=== PATIENT | male | born 1990 | race Caucasian/White ===

== ENCOUNTER 2016-09-14 12:52 | Inpatient (IN) | payer BC ==
[~2016-09-14] VITALS: Ht 165.1 cm; Wt 80.0 kg
[2016-09-14] MEDS ORDERED: KETOROLAC 30 MG INJ IM STA (13:28)
[2016-09-14] MEDS ORDERED: HYDROCODONE/APAP (10/325) TAB PO ONE (13:30)
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
--- NOTE | 2016-09-14 15:00 | RADRPT ---
PROCEDURE: XR Right Ankle CLINICAL INDICATION: Injury TECHNIQUE: Standard 3 view radiographs were submitted. COMPARISON: None FINDINGS: Osseous structures: There is a comminuted intra-articular fracture involving the distal right tibia extending into both the medial and lateral plafond. There is no significant displacement of the fra cture fragments. There is a cortical avulsion off the medial aspect of the lateral malleolus. Joint spaces: No dislocation is evident but there is loss of height at the medial plafond. Soft tissues: There is extensive lateral soft tissue swelling. IMPRESSION: 1. Comminuted intra-articular fracture involving distal right tibia extending into the medial and l ateral plafond. 2. Linear avulsion fragments project through the lateral ankle mortise and presumably are off the m edial aspect of the lateral malleolus. 3. Extensive soft tissue swelling seen about the lateral malleolus. Physician Claudia Date Time Electronically viewed and signed by Physician Claudia on 09/14/2016 15:00 RH/
--- NOTE | 2016-09-14 15:01 | RADRPT ---
PROCEDURE: XR Right Foot CLINICAL INDICATION: Injury TECHNIQUE: An PA and a lateral view were obtained. COMPARISON: None FINDINGS: Osseous structures: There is a comminuted intra-articular fracture involving the distal right tibia. The visualized osseous elements otherwise appear intact. Joint spaces: are well maintained, with no significant spurring, erosion or joint effusion evident. Soft tissues: There is considerable soft tissue swelling seen about the lateral malleolus. IMPRESSION: 1. Comminuted intra-articular fracture involving distal right tibia. 2. Soft tissue swelling seen about the lateral malleolus. Physician Claudia Date Time Electronically viewed and signed by Physician Claudia on 09/14/2016 15:01 /
--- NOTE | 2016-09-14 15:04 | RADRPT ---
PROCEDURE: XR Right Tibia-Fibula CLINICAL INDICATION: Injury TECHNIQUE: AP and lateral radiographs were submitted COMPARISON: None FINDINGS: Osseous structures: There is a comminuted intra-articular fracture involving the distal right tibia with the main distal fragment displaced medially by a cortical width. Fracture lines extend into th e medial and lateral plafond. Of the lateral malleolus as partially obscured by overlap of the talu s. No other fracture is identified. Joint spaces: There is narrowing of the superior ankle joint medially. Soft tissues: Soft tissue swelling is seen about the lateral ankle. IMPRESSION: 1. Comminuted intra-articular fracture involving the distal right tibia with the main distal fragme nt displaced medially by a cortical width. 2. Narrowing of the superior ankle mortise medially. 3. Considerable soft tissue swelling is seen about the lateral malleolus. Physician Claudia Date Time Electronically viewed and signed by Physician Claudia on 09/14/2016 15:03 /
--- NOTE | 2016-09-14 15:05 | RADRPT ---
PROCEDURE: CR Right Knee CLINICAL INDICATION: Injury TECHNIQUE: A PA and lateral view were submitted. COMPARISON: None FINDINGS: Osseous Structures: The osseous elements appear well mineralized and intact. Join Spaces: The joint spaces are well maintained. No joint effusion is identified. Soft Tissues: The soft tissues appear unremarkable. IMPRESSION: Unremarkable two-view right knee series. Physician Claudia Date Time Electronically viewed and signed by Remy Jarrett Physician on 09/14/2016 15:04 /
--- NOTE | 2016-09-14 15:11 | RADRPT ---
PROCEDURE: US right lower extremity veins. CLINICAL INDICATION: Right leg pain and swelling. TECHNIQUE: Multiple longitudinal and transverse images of the right lower extremity veins were obt ained with bazan scale and color Doppler imaging. The common femoral vein, femoral vein, and poplitea l vein were evaluated. 2D grayscale measurements with compression sonography, pulsed Doppler, color Doppler, and pulsed Doppler with augmentation. COMPARISON: No prior studies are available for comparison. FINDINGS: The right common femoral, femoral and popliteal veins are normally compressible throughout. Color f low demonstrates normal filling of the vessels. Normal waveforms are visualized and there is normal response to augmentation. IMPRESSION: 1. No evidence of deep vein thrombosis involving the right lower extremity. RPTAT: QQ .Junaid Koo MD, MD Date Time Electronically viewed and signed by .Junaid Koo MD, MD on 09/14/2016 15:10 .R/
[2016-09-14] MEDS ORDERED: ONDANSETRON 4 MG INJ IV STA ×2 (15:30→16:40)
[2016-09-14] MEDS ORDERED: morphine 4 MG/ML VIAL IV STA (15:30)
[2016-09-14] MEDS ORDERED: HYDROmorphONE 1 MG/ML SYG IV STA ×4 (15:50→17:08)
[2016-09-14] MEDS ORDERED: SOD CHLORIDE 0.9% 500 ML IV STA (16:40)
[2016-09-14 17:09] LABS: ADD SCAN DIFF NO
[2016-09-14 17:11] LABS: BASOPHILS % 0.3 % (0.0-2.0); HEMATOCRIT 39.1 % (42.0-52.0); HEMOGLOBIN 13.5 g/dl (14.0-18.0); LYMPHOCYTES # 0.8 10^3/ul (0.8-2.9); LYMPHOCYTES % 7.1 % (15.0-51.0); MEAN CORPUSCULAR HEMOGLOBIN 31.3 pg (29.0-33.0); MEAN CORPUSCULAR HGB CONC 34.5 g/dl (32.0-37.0); MEAN CORPUSCULAR VOLUME 90.5 fl (82.0-101.0); MEAN PLATELET VOLUME 9.9 fl (7.4-10.4); MONOCYTE # 0.8 10^3/ul (0.3-0.9); MONOCYTES % 6.7 % (0.0-11.0); NEUTROPHIL # 9.6 10^3/ul (1.6-7.5); NEUTROPHILS % 85.5 % (39.0-77.0); PLATELET COUNT 195 10^3/UL (140-415); RED BLOOD COUNT 4.32 10^6/ul (4.70-6.10); RED CELL DISTRIBUTION WIDTH 11.9 % (11.5-14.5); WHITE BLOOD COUNT 11.2 10^3/ul (4.8-10.8)
[2016-09-14 17:31] LABS: INR 0.98; PARTIAL THROMBOPLASTIN TIME 24.7 Sec (25.0-35.0)
[2016-09-14 17:33] LABS: CALCIUM 9.4 mg/dl (8.4-10.2); CREATININE 0.93 mg/dl (0.61-1.24); POTASSIUM 4.3 mmol/L (3.5-5.1)
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
[2016-09-14] MEDS ORDERED: ACETAMINOPHEN 325 MG TAB PO PRN ×2 (18:00→21:30)
[2016-09-14] MEDS ORDERED: ONDANSETRON 4 MG INJ IV PRN ×2 (18:00→21:30)
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
[2016-09-14 20:00] VITALS: BP 118/65; PULSE 66; RESP 18
[2016-09-14] MEDS ORDERED: HYDROmorphONE 1 MG/ML SYG IV PRN ×2 (20:00→21:30)
[2016-09-14] MEDS: HYDROmorphONE 1 MG/ML SYG IV PRN (20:06)
[2016-09-14] MEDS ORDERED: NACL 0.9% 3 ML SYG IV SCH (21:30)
[2016-09-14] MEDS ORDERED: HYDROmorphONE 2 MG/ML SYG IV PRN (21:30)
[2016-09-14] MEDS: SOD CHLORIDE 0.9% 1,000 ML IV SCH (23:27)
[2016-09-15] VITALS (21 sets, daily range): BP systolic 116–132; BP diastolic 52–65; PULSE 56–90; RESP 12–30
[2016-09-15] MEDS: ONDANSETRON 4 MG INJ IV PRN ×2 (01:25→08:38)
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
[2016-09-15 06:22] LABS: ADD SCAN DIFF NO
[2016-09-15 06:25] LABS: BASOPHILS % 0.2 % (0.0-2.0); HEMATOCRIT 36.7 % (42.0-52.0); HEMOGLOBIN 12.5 g/dl (14.0-18.0); LYMPHOCYTES # 1.7 10^3/ul (0.8-2.9); MEAN CORPUSCULAR HEMOGLOBIN 30.9 pg (29.0-33.0); MEAN CORPUSCULAR HGB CONC 34.1 g/dl (32.0-37.0); MEAN CORPUSCULAR VOLUME 90.8 fl (82.0-101.0); MEAN PLATELET VOLUME 10.4 fl (7.4-10.4); MONOCYTES % 11.7 % (0.0-11.0); NEUTROPHIL # 5.8 10^3/ul (1.6-7.5); NEUTROPHILS % 67.8 % (39.0-77.0); PLATELET COUNT 180 10^3/UL (140-415); RED BLOOD COUNT 4.04 10^6/ul (4.70-6.10); WHITE BLOOD COUNT 8.6 10^3/ul (4.8-10.8)
[2016-09-15] MEDS: PANTOPRAZOLE 40 MG INJ IV SCH (06:26)
[2016-09-15 06:48] LABS: POTASSIUM 4.2 mmol/L (3.5-5.1)
[2016-09-15 06:51] LABS: ALBUMIN/GLOBULIN RATIO 1.37; BILIRUBIN,INDIRECT 0.8 mg/dl (0-1.1); BILIRUBIN,TOTAL 0.8 mg/dl (0.2-1.3); CALCIUM 8.9 mg/dl (8.4-10.2); CREATININE 0.98 mg/dl (0.61-1.24); TOTAL PROTEIN 6.9 g/dl (6.1-8.1)
[2016-09-15 06:52] LABS: MAGNESIUM 1.9 mg/dl (1.7-2.5)
[2016-09-15] MEDS ORDERED: EPHEDrine SULFATE 50 MG/5 ML SYG ONE (07:00)
[2016-09-15] MEDS ORDERED: CEFAZOLIN 1 GM INJ ONE (07:00)
[2016-09-15] MEDS ORDERED: DESFLURANE 15 MIN ONE (07:00)
[2016-09-15] MEDS ORDERED: morphine 4 MG/ML VIAL IV STA (08:24)
[2016-09-15] MEDS ORDERED: LORAZEPAM 2 MG INJ IV PRN (08:30)
[2016-09-15] MEDS ORDERED: ONDANSETRON 4 MG INJ IV PRN ×3 (08:30→15:00)
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
[2016-09-15] MEDS ORDERED: FENTAnyl 50 MCG/ML VIAL ONE (12:57)
[2016-09-15] MEDS ORDERED: morphine SULFATE/PF (10 MG/10 ML) INJ ONE ×2 (13:02)
[2016-09-15] MEDS: SOD CHLORIDE 0.9% 1,000 ML IV SCH ×2 (13:18→18:26)
[2016-09-15] MEDS ORDERED: PHENYLephrine (100 MCG/ML) 5ML SYG ONE (13:32)
[2016-09-15] MEDS ORDERED: SUCCINYLCHOLINE CHLORIDE 100 MG/5 ML SYG IV ONE (13:42)
[2016-09-15] MEDS ORDERED: GLYCOPYRROLATE 0.4 MG INJ ONE (13:42)
[2016-09-15] MEDS ORDERED: ROCURONIUM 50 MG INJ ONE (13:42)
[2016-09-15] MEDS ORDERED: NEOSTIGMINE 3 MG/3 ML SYRINGE ONE (13:42)
[2016-09-15] MEDS ORDERED: LIDOCAINE 2% (SDV) 5 ML INJ ONE (13:42)
[2016-09-15] MEDS ORDERED: PROPOFOL 20 ML ONE (13:42)
[2016-09-15] MEDS ORDERED: HYDROmorphONE 1 MG/ML SYG IV PRN (15:00)
[2016-09-15] MEDS ORDERED: NALOXONE (0.4 MG/ML) INJ IV PRN (15:00)
[2016-09-15] MEDS ORDERED: HYDROmorphONE (0.2 MG/ML) 10ML SYG IV PRN ×3 (15:00)
[2016-09-15] MEDS ORDERED: DIPHENHYDRAMINE 50 MG INJ IV PRN ×2 (15:00)
[2016-09-15] MEDS ORDERED: MEPERIDINE 25 MG INJ IV PRN (15:00)
[2016-09-15] MEDS ORDERED: FENTAnyl 50 MCG/ML VIAL IV PRN (15:00)
[2016-09-15] MEDS ORDERED: HYDROCODONE/APAP (5/325) TAB PO PRN (17:00)
[2016-09-15] MEDS: CEFAZOLIN 1 GM/50 ML (PMX) 50 ML IVPB SCH ×2 (17:00→22:19)
[2016-09-15] MEDS ORDERED: NACL 0.9% 3 ML SYG IV SCH (17:00)
--- NOTE | 2016-09-15 17:32 | RADRPT ---
PROCEDURE: Intraoperative imaging of the right ankle with fluoroscopy. CLINICAL INDICATION: Right ankle pain. Intraoperative. TECHNIQUE: 6 images of the right ankle were obtained in the operating room with an image intensifi er. No radiologist was in attendance. Fluoroscopy time was unobtainable. COMPARISON: 09/14/2016. FINDINGS: As seen previously, there is a comminuted fracture of the distal tibia. Alignment is satisfactory. There is a cast which obscures the bone detail. An external fixation devices traversing the calcan eus. IMPRESSION: 1. Intraoperative imaging of the right ankle. RPTAT: QQ .Junaid Koo MD, MD Date Time Electronically viewed and signed by .Junaid Koo MD, on 09/15/2016 17:32 .R/
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
--- NOTE | 2016-09-15 18:08 | RADRPT ---
PROCEDURE: XR Right Ankle. CLINICAL INDICATION: Right ankle pain. Postop. TECHNIQUE: 3 views. Frontal, lateral, and oblique. COMPARISON: 09/14/2016. FINDINGS: Bone detail is obscured by the cast. There is a comminuted fracture of the distal tibia extending to the distal articular surface of the tibia with satisfactory alignment. A single pin is noted in the calcaneus. The articular surfaces are otherwise intact. There is no lytic or blastic lesion. There is diffuse soft tissue swelling. IMPRESSION: 1. Satisfactory postoperative appearance of the right ankle. RPTAT: QQ .Junaid Koo MD, Date Time Electronically viewed and signed by .Junaid Koo MD, on 09/15/2016 18:08 .R/
[2016-09-15] MEDS: HYDROmorphONE 1 MG/ML SYG IV PRN ×3 (18:27→23:59)
[2016-09-15] MEDS: HYDROCODONE/APAP (5/325) TAB PO PRN ×2 (20:05→23:03)
[2016-09-16 00:36] VITALS: BP 130/76; PULSE 68; RESP 16
--- NOTE | 2016-09-16 01:55 | OPR ---
DATE OF OPERATION: 09/15/2016 PREOPERATIVE DIAGNOSIS: Tibial plafond fracture of the right ankle. POSTOPERATIVE DIAGNOSIS: Tibial plafond fracture of the right ankle. PROCEDURES PERFORMED: Manipulative reduction of the tibial plafond fracture of the right ankle unde r anesthesia followed by immobilization, utilizing pins and plaster technique. ANESTHESIA: Spinal anesthesia combined with general anesthesia. SURGEON: Johnie Beatty MD. PROCEDURES AND FINDINGS: Under anesthesia, the patient was placed in supine position upon the fract ure table. Utilizing fracture table under fluoroscopic monitoring, the preliminary manipulative red uction was carried out and the overall alignment was observed. It was noted that with manipulative reduction, the fractures are lining up fairly good and the fracture line involving the articular moshe face was getting better aligned. Because of this initial observation and initial outcome following the manipulative reduction, it was decided to carry out the pins and plaster fixation and immobiliza tion. Following initial manipulation a Steinmann pin was placed in through the calcaneus and proxim al shaft of the tibia and then the traction was established through the Steinmann pins. After confi rming acceptable overall alignment of the fracture along with the acceptable alignment at the articu lar surface, the entire right leg was immobilized in a fiberglass cast, incorporating the Steinmann pins proximally and distally. At the end of the testing overall alignment of the fracture was satis factory. The patient tolerated the entire procedure very well and was sent to the recovery room in good condi tion. Dictated By: JOHNIE BEATTY MD IK/NTS Conf#: [id number] DID#: [id number]
[2016-09-16] MEDS: SOD CHLORIDE 0.9% 1,000 ML IV SCH ×6 (03:29→22:35)
[2016-09-16] MEDS: HYDROmorphONE 1 MG/ML SYG IV PRN ×6 (03:37→22:53)
[2016-09-16 04:56] LABS: ADD SCAN DIFF NO
[2016-09-16 05:12] LABS: BASOPHILS % 0.3 % (0.0-2.0); HEMATOCRIT 34.4 % (42.0-52.0); HEMOGLOBIN 11.5 g/dl (14.0-18.0); LYMPHOCYTES % 27.1 % (15.0-51.0); MEAN CORPUSCULAR HEMOGLOBIN 30.9 pg (29.0-33.0); MEAN CORPUSCULAR HGB CONC 33.4 g/dl (32.0-37.0); MEAN CORPUSCULAR VOLUME 92.5 fl (82.0-101.0); MEAN PLATELET VOLUME 10.5 fl (7.4-10.4); MONOCYTE # 0.8 10^3/ul (0.3-0.9); MONOCYTES % 10.6 % (0.0-11.0); NEUTROPHIL # 4.5 10^3/ul (1.6-7.5); NEUTROPHILS % 61.9 % (39.0-77.0); PLATELET COUNT 142 10^3/UL (140-415); RED BLOOD COUNT 3.72 10^6/ul (4.70-6.10); WHITE BLOOD COUNT 7.3 10^3/ul (4.8-10.8)
[2016-09-16 05:30] LABS: POTASSIUM 4.2 mmol/L (3.5-5.1)
[2016-09-16 05:32] LABS: CREATININE 0.87 mg/dl (0.61-1.24)
[2016-09-16 05:33] LABS: CALCIUM 8.3 mg/dl (8.4-10.2)
[2016-09-16] MEDS: PANTOPRAZOLE 40 MG INJ IV SCH (05:48)
[2016-09-16] MEDS: CEFAZOLIN 1 GM/50 ML (PMX) 50 ML IVPB SCH ×2 (05:48→15:17)
[2016-09-16 07:43] VITALS: BP 126/71; RESP 19
--- NOTE | 2016-09-16 09:27 | CONS ---
Date/Time of Note Date/Time of Note DATE: 09/16/16 TIME: 09:24 Consultation Date/Type/Reason Admit Date/Time September 14, 2016 at 17:37 Initial Consult Date 09/16/16 Type of Consultation: Anesthesiology Reason for Consultation Follow up 24 HR Interval Summary Free Text/Dictation Pt seen and examined at bedside is POD#1 s/p Tibial fracture repair. Pt received GETA and duramorph spinal for post op pain control. He states he started having pain last night for which he recieved IV narcotis which helped him. No N/V/D/C/numbess/[place]. Will continue to follow. Constitutional: improved Exam/Review of Systems Vital Signs Vitals Vital Signs Date Time Temp Pulse Resp B/P Pulse Ox O2 Delivery O2 Flow Rate FiO2 09/16/16 07:43 98.0 87 19 126/71 98 09/16/16 00:36 Nasal Cannula 1.0 Intake and Output 09/15/16 09/15/16 09/16/16 15:00 23:00 07:00 Intake Total 420 ml 1550 ml 1500 ml Output Total 255 ml 1800 ml Balance 420 ml 1295 ml -300 ml Results Result Diagram: 09/16/16 0434 09/16/16 0434 Results 24 hrs Laboratory Tests Test 09/16/16 04:34 White Blood Count 7.3 Red Blood Count 3.72 L Hemoglobin 11.5 L Hematocrit 34.4 L Mean Corpuscular Volume 92.5 Mean Corpuscular Hemoglobin 30.9 Mean Corpuscular Hemoglobin Concent 33.4 Red Cell Distribution Width 12.0 Platelet Count 142 # Mean Platelet Volume 10.5 H Neutrophils % 61.9 Lymphocytes % 27.1 Monocytes % 10.6 Eosinophils % 0.0 Basophils % 0.3 Nucleated Red Blood Cells % 0.0 Neutrophils # 4.5 Lymphocytes # 2.0 Monocytes # 0.8 Eosinophils # 0.0 Basophils # 0.0 Nucleated Red Blood Cells # 0.0 Sodium Level 138 Potassium Level 4.2 Chloride Level 102 Carbon Dioxide Level 27 Anion Gap 13 Blood Urea Nitrogen 6 L Creatinine 0.87 Glucose Level 99 Calcium Level 8.3 L Medications Medications Current Medications Hydromorphone HCl (Dilaudid) 1 mg Q4H PRN IV PAIN Last administered on t 23:59; Admin Dose 1 MG; Start 09/14/16 at 20:00 Ondansetron HCl 4 mg 4 mg Q4H PRN IV NAUSEA AND/OR VOMITING Last administered on 09/15/16 08:38; Admin Dose 4 MG; Start 09/14/16 at 23:00 Sodium Chloride (NS) 1,000 ml @ 70 mls/hr [id number] IV Last administered on 09/14 23:27; Admin Dose 70 MLS/HR; Start 09/14/16 at 23:00 Acetaminophen (Tylenol Tab) 650 mg Q6H PRN PO PAIN LEVEL 1-3 OR FEVER Last administered on 09/15/16 22:19; Admin Dose 650 MG; Start 09/14/16 at 21:30 Hydromorphone HCl (Dilaudid) 2 mg Q4H PRN IV SEVERE PAIN LEVEL 7-10; Start at 21:30 Pantoprazole (Protonix Iv) 40 mg DAILY@06 IV Last administered on 09/16/16 05: 48; Admin Dose 40 MG; Start 09/15/16 at 06:00 Naloxone HCl (Narcan) 0.1 mg Q2M PRN IV FOR RESP RATE 8 OR LESS; Start at 15:00; Stop 09/16/16 at 14:59 Hydromorphone HCl (Dilaudid) 0.2 mg Q3H PRN IV PAIN LEVEL 1-5; Start 09/15/16 at 15:00; Stop 09/16/16 at 14:59 Hydromorphone HCl (Dilaudid) 0.4 mg Q3H PRN IV PAIN LEVEL 6-10 Last administered on 09/16/16 06:42; Admin Dose 0.4 MG; Start 09/15/16 at 15:00; Stop 09/16/16 at 14:59 Diphenhydramine HCl (Benadryl) 25 mg Q6H PRN IV ITCHING Last administered on 00:30; Admin Dose 25 MG; Start 09/15/16 at 15:00; Stop 09/16/16 at 14:59 Ondansetron HCl 4 mg 4 mg Q6H PRN IV NAUSEA AND/OR VOMITING; Start 09/15/16 at 15:00; Stop 09/16/16 at 14:59 Sodium Chloride (NS) 1,000 ml @ 100 mls/hr Q10H IV Last administered on 03:29; Admin Dose 100 MLS/HR; Start 09/15/16 at 16:35 Enoxaparin Sodium (Lovenox) 40 mg DAILY SC ; Start 09/16/16 at 09:00 Hydromorphone HCl (Dilaudid) 1 mg Q3 PRN IV PAIN; Start 09/15/16 at 17:00 Acetaminophen/ Hydrocodone Bitart ([employer] (5/325)) 1 tab Q3H PRN PO PAIN Last administered on 09/15/16 23:03; Admin Dose 1 TAB; Start 09/15/16 at 17:00 Acetaminophen/ Hydrocodone Bitart 1 tab 1 tab Q3H PRN PO PAIN; Start 09/15/16 at 17:00 Cefazolin Sodium (Ancef 1 Gm/50 ml (Pmx)) 50 ml @ 100 mls/hr Q8 IVPB Last administered on 09/16/16 05:48; Admin Dose 100 MLS/HR; Start 09/16/16 at 06:00 ; Stop 09/16/16 at 14:29 TRACIE ANGUIANO September 16, 2016 09:27
[2016-09-16] MEDS: ENOXAPARIN 40 MG/0.4 ML SYG SC SCH (10:07)
[2016-09-16] MEDS ORDERED: OXYC-279 PO (13:42)
[2016-09-16] MEDS ORDERED: SENN-53 PO (13:42)
--- NOTE | 2016-09-16 13:51 | PDOCDIS ---
Discharge Instructions DIAGNOSIS Discharge Diagnosis: 1. Tibial plafond fracture of the right ankle CONDITION Patient Condition: Stable FOLLOW UP/APPOINTMENTS Appointments 1. Follow up with [facility] in one week JEFF PRUITT September 16, 2016 13:51
[2016-09-16] MEDS ORDERED: OXYCODONE/ACETAMINOPHEN (5/325) TAB PO PRN (14:00)
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
[2016-09-16] MEDS: OXYCODONE/ACETAMINOPHEN (5/325) TAB PO PRN ×2 (18:28→22:12)
[2016-09-16 20:23] VITALS: BP 127/60; RESP 16
[2016-09-16 20:40] VITALS: Ht 165.1 cm; Wt 80.0 kg
[2016-09-17] MEDS: HYDROmorphONE 1 MG/ML SYG IV PRN ×2 (03:10→06:27)
[2016-09-17] MEDS: OXYCODONE/ACETAMINOPHEN (5/325) TAB PO PRN ×3 (03:58→12:30)
[2016-09-17] MEDS: PANTOPRAZOLE 40 MG INJ IV SCH (06:27)
[2016-09-17] MEDS: SOD CHLORIDE 0.9% 1,000 ML IV SCH ×2 (07:54→07:56)
[2016-09-17 08:11] VITALS: BP 122/70; RESP 18
[2016-09-17] MEDS: ENOXAPARIN 40 MG/0.4 ML SYG SC SCH (08:28)
== END 2016-09-17 15:15 | disposition home or self-care (01) | DRG 494 ==
LOC: FTE 12:52 → MS1 17:37
PROVIDERS: ADMIT Family Medicine; ATTEND Family Medicine
PROC: 0QSG04Z Reposition Right Tibia with Internal Fixation Device, Open Approach (ICD-10-PCS; principal; 2016-09-15 13:00)
DX: S82.301A Unspecified fracture of lower end of right tibia, initial encounter for closed fracture (principal); V29.88XA Motorcycle rider (driver) (passenger) injured in other specified transport accidents, initial encounter; Y93.39 Activity, other involving climbing, rappelling and jumping off; Y92.89 Other specified places as the place of occurrence of the external cause; Y99.8 Other external cause status
CPT/HCPCS: 70450; 73562; 73590; 73630; 80048; 80053; 83735; 85025; 85610; 85730; 87086; 93971; 96372; 96374; 96375; 96376; 97116; 97162; 97530; C1713; C9113; J0690; J1170; J1200; J1650; J1885; J2175; J2270; J2274; J2370; J2405; J2710; J3010; J7030; J7040; J7999